=== PATIENT | female | born 1960 | race Caucasian/White ===

== ENCOUNTER 2020-09-21 18:23 | Inpatient (IN) | payer MEDICARE, BC ==
[~2020-09-21] VITALS: Ht 154.9 cm; Wt 40.8 kg
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
[2020-09-21] MEDS ORDERED: CYCL5TAB PO (18:49)
[2020-09-21] MEDS ORDERED: METH10TA2 PO (18:49)
[2020-09-21] MEDS ORDERED: CLON1TAB12 PO (18:49)
[2020-09-21] MEDS ORDERED: POLY15DR40 EACHEYE (18:49)
[2020-09-21] MEDS ORDERED: ALPR-324 PO (18:49)
[2020-09-21] MEDS ORDERED: OXYC30TA2 PO (18:49)
[2020-09-21] MEDS ORDERED: D-AM10TA2 PO (18:58)
[2020-09-21] MEDS ORDERED: MAG HYDROX/AL HYDROX/SIMETH 30 ML UDC PO PRN (19:00)
[2020-09-21] MEDS ORDERED: MAGNESIUM HYDROXIDE 30 ML UDC PO PRN (19:00)
[2020-09-21] MEDS ORDERED: BLOOD SUGAR DIAGNOSTIC 1 EACH STRIP IN ONE (19:00)
[2020-09-21] MEDS ORDERED: ACETAMINOPHEN 325 MG TABLET PO PRN (19:00)
[2020-09-21 19:49] VITALS: BP 125/83
[2020-09-21 20:20] VITALS: BP 117/73
[2020-09-21] MEDS ORDERED: HYDR200T81 PO (20:33)
[2020-09-21] MEDS ORDERED: FLUV50TA10 PO (20:35)
[2020-09-21] MEDS ORDERED: HYDR-500 PO (20:37)
[2020-09-21] MEDS ORDERED: QUET25TA PO (20:39)
[2020-09-21] MEDS: METHADONE HCL 10 MG TABLET PO SCH (21:04)
[2020-09-22] MEDS: LORAZEPAM 0.5 MG TABLET PO PRN ×3 (03:39→23:19)
--- NOTE | 2020-09-22 03:41 | NUR ---
GPS RN NOTE, PATIENT HAS A COMPLAINT OF FEELING ANXIOUS AND IS REQUESTING ATIVAN AT THIS TIME. PATIENT VITAL SIGNS ARE STABLE. GAVE ATIVAN 0.5MG PO Q6HR PRN ORDERED. WILL REASSESS FOR ANXIETY AND I WILL CONTINUE TO MONITOR THIS PATIENT.
[2020-09-22 07:21] LABS: ALBUMIN 3.6 g/dL (3.4-5.0); BILIRUBIN,TOTAL 0.3 mg/dL (0.2-1.0); CALCIUM, SERUM 8.6 mg/dL (8.5-10.1); CREATININE 0.8 mg/dL (0.6-1.3); TOTAL PROTEIN, SERUM 6.7 g/dL (6.4-8.2)
[2020-09-22 07:23] LABS: CHOLESTEROL 180 mg/dL (<200); HDL CHOLESTEROL 99 mg/dL (40-60); LDL 67 mg/dL (0-99); TRIGLYCERIDES 55 mg/dL (30-150)
[2020-09-22 08:00] VITALS: BP 131/81
[2020-09-22] MEDS ORDERED: ENSURE ENLIVE CHOC 237 ML CAN PO SCH (08:00)
[2020-09-22] MEDS ORDERED: KEY,NONCONTROL,TO KEEP IN PYXI 1 EA MC ONE (08:36)
[2020-09-22] MEDS: METHADONE HCL 10 MG TABLET PO SCH ×2 (09:14→21:28)
[2020-09-22] MEDS: HYDROXYCHLOROQUINE 200 MG TABLET PO SCH (09:15)
[2020-09-22] MEDS: DEXTROAMPHETAMINE 10 MG PO SCH ×3 (09:15→17:09)
[2020-09-22] MEDS: POLYVINYL ALCOHOL 15 ML BOTTLE OP PRN ×2 (09:16→22:36)
[2020-09-22] MEDS: ARIPIPRAZOLE 5 MG TABLET PO SCH ×2 (12:24→20:46)
[2020-09-22] MEDS: ENSURE ENLIVE CHOC 237 ML CAN PO SCH ×2 (12:41→17:14)
--- NOTE | 2020-09-22 12:49 | NUR ---
RN-NOTES PATIENT REQUESTING ATIVAN, STATED" I NEED IT FOR MY ANXIETY". ATIVAN 0.5MG P.O GIVEN PRN ORDER. WILL CONT. MONITORING FOR SAFETY AND BEHAVIOR.
--- NOTE | 2020-09-22 13:13 | NUR ---
Family Contact: SW contacted the pts father, Dr. Juan Antonio Hoffmann ([phone]), and went over the pts hold and the pts initial treatment plan. SW stated that she will keep him updated on the pts discharge.
--- NOTE | 2020-09-22 13:45 | NUR ---
RN-NOTES PATIENT SITTING IN HER BED INTERACTING WITH THE ROOM MATE,CALM,NO ACUTE DISTRESS NOTED.
--- NOTE | 2020-09-22 14:57 | NUR ---
Family Contact: Pts brother, Leroy ([phone]), called the SW and stated that the pt wants to be transferred and he contacted [facility] in [place] who stated that they have a bed. Pts brother asked the SW to coordinate the transfer.
--- NOTE | 2020-09-22 14:58 | NUR ---
[facility] Contact: NALINI called [facility] ([phone]) and spoke with Trace who stated that they cannot accept patients on a hold until the hold is up.
--- NOTE | 2020-09-22 15:20 | NUR ---
Family Contact: SW called the pts brother, Leroy ([phone]), and informed him that the pt can only be transferred there voluntarily and the pts brother stated that he wants to confirm that with the facility.
--- NOTE | 2020-09-22 15:21 | NUR ---
Family Contact: Pts brother, Leroy ([phone]), called the SW back and stated that he received the same information and that he wants the SW to speak to the MD the next day and advocate for the pt to be a voluntary pt.
[2020-09-22 16:00] VITALS: BP 126/73
[2020-09-22] MEDS: ALPRAZOLAM 0.25 MG TABLET PO SCH (17:09)
[2020-09-22] MEDS: oxyCODONE IR immediate release 5 MG PO PRN (17:34)
[2020-09-22 20:00] VITALS: BP 143/73
[2020-09-22] MEDS: MIRTAZAPINE 15 MG TABLET PO SCH (20:46)
--- NOTE | 2020-09-22 23:20 | NUR ---
RN NOTES: ANXIETY PT C/O FEELING ANXIOUS. REQUESTING ATIVAN. ATIVAN 0.5 MG PO PRN ADMINISTERED,WILL CONTINUE TO MONITOR.
[2020-09-23] MEDS ORDERED: KEY,NONCONTROL,TO KEEP IN PYXI 1 EA MC ONE (07:50)
[2020-09-23 08:00] VITALS: BP 128/75
[2020-09-23] MEDS: ARIPIPRAZOLE 5 MG TABLET PO SCH ×2 (08:00→20:31)
[2020-09-23] MEDS: HYDROXYCHLOROQUINE 200 MG TABLET PO SCH (08:00)
[2020-09-23] MEDS: ENSURE ENLIVE CHOC 237 ML CAN PO SCH ×3 (08:03→18:27)
[2020-09-23] MEDS: DEXTROAMPHETAMINE 10 MG PO SCH (08:31)
[2020-09-23] MEDS: ALPRAZOLAM 0.25 MG TABLET PO SCH ×2 (09:01→16:15)
[2020-09-23] MEDS: METHADONE HCL 10 MG TABLET PO SCH ×2 (09:01→20:31)
--- NOTE | 2020-09-23 09:52 | NUR ---
Family Contact with MD: and NALINI contacted the pts father, Dr. Juan Antonio Hoffmann ([phone]), to discuss that the pts hold is not going to be broken at this time as she is not stable for discharge. informed him that once the pt has improved she will be discharged and can be admitted to the alternate hospital for further treatment.
--- NOTE | 2020-09-23 10:24 | NUR ---
Dr. Woodward in the unit ordered to D/C Dextroamphetamine tab.
--- NOTE | 2020-09-23 11:28 | NUR ---
Initial Discharge Plan: Pt currently resides at home with her father, Dr Hoffmann ([phone]), located at [address] [place], [place] [id number]. Per pt, she would like to return home or leave this facility and be admitted to a different psychiatric facility. SW will work with the pt and the MD regarding appropriate discharge planning. SW will form a safe and proper discharge.
[2020-09-23] MEDS: oxyCODONE IR immediate release 5 MG PO PRN ×2 (15:09→19:28)
[2020-09-23 16:00] VITALS: BP 142/83
[2020-09-23] MEDS: LORAZEPAM 0.5 MG TABLET PO PRN (19:27)
[2020-09-23 20:28] VITALS: BP 127/73
[2020-09-23] MEDS: MIRTAZAPINE 15 MG TABLET PO SCH (20:31)
[2020-09-23] MEDS: CYCLOBENZAPRINE 10 MG TABLET PO PRN (22:07)
[2020-09-24] MEDS: LORAZEPAM 0.5 MG TABLET PO PRN ×2 (01:33→12:55)
[2020-09-24 08:00] VITALS: BP 116/74
--- NOTE | 2020-09-24 08:10 | NUR ---
RN note: Pt received alert awake oriented X 3. No breathing distress noted. Denies SI/HI. Safety measures observed. Encourage pt to call for assistance. Continue with plan of care. Continue to monitor.
[2020-09-24] MEDS: HYDROXYCHLOROQUINE 200 MG TABLET PO SCH (08:28)
[2020-09-24] MEDS: ALPRAZOLAM 0.25 MG TABLET PO SCH ×2 (08:29→16:57)
[2020-09-24] MEDS: METHADONE HCL 10 MG TABLET PO SCH ×2 (08:29→21:01)
[2020-09-24] MEDS: ENSURE ENLIVE CHOC 237 ML CAN PO SCH ×3 (08:30→17:04)
[2020-09-24] MEDS: ARIPIPRAZOLE 5 MG TABLET PO SCH ×2 (08:30→21:01)
[2020-09-24] MEDS: oxyCODONE IR immediate release 5 MG PO PRN ×2 (15:14→22:14)
[2020-09-24 16:00] VITALS: BP 124/74
[2020-09-24 16:31] VITALS: BP 124/74
[2020-09-24] MEDS: CYCLOBENZAPRINE 10 MG TABLET PO PRN (17:34)
[2020-09-24 20:05] VITALS: BP 127/69
[2020-09-24] MEDS: MIRTAZAPINE 15 MG TABLET PO SCH (21:01)
--- NOTE | 2020-09-24 22:22 | NUR ---
GPS RN NOTES PATIENT C/O PAIN ON THE FOOT. ON ASSESSMENT PATIENT SAID HER NERVES ARE LIKE SHOOTING PAIN WHEN I TOUCHED IT AND PER PATIENT SHE NEEDS TO GO TO THE ER TO BE SEEN BY DOCTOR. MADE THE CHARGE NURSE KNOWN AND OKAYED TO GIVE OXY IR 30 MG. VS FOLLOWS: BP- 129/86, P-68.
[2020-09-25 00:08] VITALS: BP 127/69
[2020-09-25] MEDS: CYCLOBENZAPRINE 10 MG TABLET PO PRN ×2 (04:35→13:05)
--- NOTE | 2020-09-25 06:45 | NUR ---
GPS RN CLOSING PATIENT IN BED SLEEPING, EASY TO AROUSE. NO S/S OF DISTRESS. PAIN MANAGED WITH PAIN MEDICATION. SAFETY KEPT IN PLACE THE WHOLE SHIFT: BED IN LOWEST, LOCKED POSITION. COOPERATIVE. NO SIGNIFICANT CHANGE SINCE LAST SHIFT.WILL ENDORSE CARE TO MORNING SHIFT NURSE.
[2020-09-25 08:00] VITALS: BP 129/78
[2020-09-25] MEDS: ARIPIPRAZOLE 5 MG TABLET PO SCH ×2 (08:27→20:32)
[2020-09-25] MEDS: METHADONE HCL 10 MG TABLET PO SCH ×2 (08:27→20:32)
[2020-09-25] MEDS: ENSURE ENLIVE CHOC 237 ML CAN PO SCH ×3 (08:27→18:06)
[2020-09-25] MEDS: HYDROXYCHLOROQUINE 200 MG TABLET PO SCH (08:29)
[2020-09-25] MEDS: ALPRAZOLAM 0.25 MG TABLET PO SCH ×2 (08:31→17:00)
[2020-09-25] MEDS: LORAZEPAM 0.5 MG TABLET PO PRN (13:05)
--- NOTE | 2020-09-25 13:05 | NUR ---
patient c/o anxiety medicated with Ativan 0.5mg po x1 will continue to monitor .
[2020-09-25 16:15] VITALS: BP 120/75
[2020-09-25] MEDS: POLYVINYL ALCOHOL 15 ML BOTTLE OP PRN (18:05)
[2020-09-25 20:10] VITALS: BP 117/78
[2020-09-25] MEDS: MIRTAZAPINE 15 MG TABLET PO SCH (20:32)
--- NOTE | 2020-09-25 20:32 | NUR ---
RN NOTE PATIENT REQUESTED TO TAKE ALL HER SCHEDULED MEDICINE RIGHT NOW. ALL 2100 SCHEDULED MEDICINES ADMINISTERED. WILL CONTINUE TO MONITOR.
[2020-09-25 20:40] VITALS: BP 117/78
[2020-09-25] MEDS: TEMAZEPAM 7.5 MG CAPSULE PO PRN (21:55)
--- NOTE | 2020-09-25 21:58 | NUR ---
RN NOTE: INSOMNIA PATIENT VERBALIZED THAT SHE IS UNABLE TO SLEEP & REQUESTED TO TAKE SLEEPING MEDICINE. PRN RESTORIL 7.5 MG PO ADMINISTERED. WILL CONTINUE TO MONITOR.
[2020-09-26] MEDS: oxyCODONE IR immediate release 5 MG PO PRN ×2 (06:31→10:36)
--- NOTE | 2020-09-26 06:32 | NUR ---
RN NOTE: PAIN PATIENT C/O GENERALIZED BODY PAIN /, GETTING IRRITATED & RESTLESS. PATIENT REQUESTED TO TAKE OXYCODONE. PRN OXYCODONE IR 30 MG PO ADMINISTERED. WILL ENDORSE TO AM RN TO CONTINUE MONITORING.
[2020-09-26 08:00] VITALS: BP 118/82
[2020-09-26] MEDS: ENSURE ENLIVE CHOC 237 ML CAN PO SCH ×3 (08:00→17:00)
[2020-09-26] MEDS: ALPRAZOLAM 0.25 MG TABLET PO SCH ×2 (08:52→16:25)
[2020-09-26] MEDS: ARIPIPRAZOLE 5 MG TABLET PO SCH ×2 (08:52→20:25)
[2020-09-26] MEDS: METHADONE HCL 10 MG TABLET PO SCH ×2 (08:52→21:30)
[2020-09-26] MEDS: HYDROXYCHLOROQUINE 200 MG TABLET PO SCH (08:52)
--- NOTE | 2020-09-26 08:54 | NUR ---
GPS RN NOTE PATIENT REFUSED ALL MORNING MEDS. EXPLAINED ALL RISKS AND BENEFITS BUT PT STATED THAT SHE WANTS TO PAUSE WITH EVERYTHING.
[2020-09-26] MEDS: LORAZEPAM 0.5 MG TABLET PO PRN ×2 (09:19→17:46)
--- NOTE | 2020-09-26 09:25 | NUR ---
GPS RN NOTE PT IS ANXIOUS AND AGITATED. SHE WANTS THE ROOM CLOSED BECAUSE SHE SAID THE NOISE IS HORRIBLE. ATIVAN 0.5 MG PO GIVEN. WILL CONTINUE TO MONITOR THROUGHOUT THE SHIFT.
[2020-09-26] MEDS: CYCLOBENZAPRINE 10 MG TABLET PO PRN (13:21)
[2020-09-26 16:00] VITALS: BP 118/92
[2020-09-26 20:20] VITALS: BP 153/90
[2020-09-26] MEDS: MIRTAZAPINE 15 MG TABLET PO SCH (20:26)
[2020-09-26 22:00] VITALS: BP 135/76
[2020-09-26] MEDS: TEMAZEPAM 7.5 MG CAPSULE PO PRN (22:22)
--- NOTE | 2020-09-26 22:23 | NUR ---
RN NOTES: INSOMNIA PT.UNABLE TO SLEEP, EASILY AGITATED PRN RESTORIL 7.5 MG PO ADMINISTERED. WILL CONTINUE TO MONITOR.
[2020-09-27 08:00] VITALS: BP_SYST 125; BP_SYST 126; BP_DIAS 77; BP_DIAS 80
[2020-09-27] MEDS: ENSURE ENLIVE CHOC 237 ML CAN PO SCH ×3 (08:13→17:09)
[2020-09-27] MEDS: ARIPIPRAZOLE 5 MG TABLET PO SCH ×2 (08:28→20:46)
[2020-09-27] MEDS: ALPRAZOLAM 0.25 MG TABLET PO SCH ×2 (08:28→17:08)
[2020-09-27] MEDS: CYCLOBENZAPRINE 10 MG TABLET PO PRN ×2 (08:29→17:08)
[2020-09-27] MEDS: HYDROXYCHLOROQUINE 200 MG TABLET PO SCH (08:29)
[2020-09-27] MEDS: METHADONE HCL 10 MG TABLET PO SCH ×2 (08:30→20:46)
--- NOTE | 2020-09-27 12:24 | NUR ---
[facility] Contact: NALINI called [facility] ([phone]) and spoke to Intake regarding a hospital to hospital transfer. NALINI faxed a referral packet to [phone].
[2020-09-27] MEDS: LORAZEPAM 0.5 MG TABLET PO PRN ×2 (13:34→20:46)
--- NOTE | 2020-09-27 13:43 | NUR ---
[facility] Contact: Ramon from [facility] ([phone]) called the and stated that the pt is too medically acute for their facility and denied the pt.
--- NOTE | 2020-09-27 14:07 | NUR ---
Family Contact: SW called the pts brother, Leroy ([phone]), and informed him that the pt was not accepted to [facility]. Pts brother stated that he wanted the SW to try [facility].
--- NOTE | 2020-09-27 14:08 | NUR ---
[facility] Referral: NALINI faxed a referral to [facility] with attn to Chloe to the fax number: [phone].
[2020-09-27 16:00] VITALS: BP 118/74
--- NOTE | 2020-09-27 16:10 | NUR ---
[facility] Contact: Chloe ([phone]) called the SW and stated that she wanted to see if the hold was broken. SW stated that it will get done tomorrow and that the pt will be discharged tomorrow.
--- NOTE | 2020-09-27 16:11 | NUR ---
Family Contact: NALINI called the pts brother, Leroy ([phone]), and informed him that she spoke to [facility] and the pt will be discharged there tomorrow.
[2020-09-27] MEDS: MIRTAZAPINE 15 MG TABLET PO SCH (20:46)
[2020-09-27] MEDS: TEMAZEPAM 7.5 MG CAPSULE PO PRN (21:32)
[2020-09-28] MEDS: CYCLOBENZAPRINE 10 MG TABLET PO PRN ×3 (05:14→21:01)
[2020-09-28] MEDS: LORAZEPAM 0.5 MG TABLET PO PRN ×3 (05:14→19:37)
[2020-09-28 08:00] VITALS: BP 122/73
--- NOTE | 2020-09-28 08:00 | NUR ---
RN NOTES PT REFUSES TO WEAR HER ID WRISTBAND, PLACED IT AT HER BEDSIDE, STATED THAT IT IRRITATES HER SKIN, PT ABLE TO SAY HER FULL NAME AND DATE OF .
[2020-09-28] MEDS: ENSURE ENLIVE CHOC 237 ML CAN PO SCH ×3 (08:13→17:37)
[2020-09-28] MEDS: METHADONE HCL 10 MG TABLET PO SCH ×2 (08:47→21:01)
[2020-09-28] MEDS: ARIPIPRAZOLE 5 MG TABLET PO SCH ×2 (08:47→21:01)
[2020-09-28] MEDS: ALPRAZOLAM 0.25 MG TABLET PO SCH ×2 (08:48→16:35)
[2020-09-28] MEDS: HYDROXYCHLOROQUINE 200 MG TABLET PO SCH (09:07)
--- NOTE | 2020-09-28 12:23 | NUR ---
[facility] Referral: NALINI faxed a Voluntary form to [facility] with attn to Chloe to the fax number: [phone].
[2020-09-28] MEDS: POLYVINYL ALCOHOL 15 ML BOTTLE OP PRN (14:15)
[2020-09-28 16:00] VITALS: BP 92/63
--- NOTE | 2020-09-28 17:46 | NUR ---
[facility] Contact: Chloe ([phone]) called the and stated that the hospital will not do a lateral transfer as the pt is already on a psychiatric unit. She transferred the phone call to Yohannes ([phone]) at intake who stated the same information and stated that the pt can be discharged and brought to their hospital directly.
--- NOTE | 2020-09-28 17:47 | NUR ---
Family Contact: NALINI called the pts brother, Leroy ([phone]), and informed him that the transfer is not being approved and he stated that he wants the MD to discharge the pt then. NALINI stated that she will speak to the MD and if the MD believes that the pt is ready to be discharged then the pt can leave.
[2020-09-28 20:00] VITALS: BP 109/73
[2020-09-28] MEDS: TEMAZEPAM 7.5 MG CAPSULE PO PRN (21:00)
[2020-09-28] MEDS: MIRTAZAPINE 15 MG TABLET PO SCH (21:01)
[2020-09-29] MEDS: LORAZEPAM 0.5 MG TABLET PO PRN ×2 (04:15→14:17)
[2020-09-29 07:01] LABS: THYROID STIMULATING HORMONE 0.916 uIU/mL (0.358-3.74)
[2020-09-29 08:00] VITALS: BP 94/61
[2020-09-29] MEDS: ENSURE ENLIVE CHOC 237 ML CAN PO SCH ×3 (08:26→17:37)
[2020-09-29] MEDS: ARIPIPRAZOLE 5 MG TABLET PO SCH (09:50)
[2020-09-29] MEDS: ALPRAZOLAM 0.25 MG TABLET PO SCH ×2 (09:51→16:50)
[2020-09-29] MEDS: METHADONE HCL 10 MG TABLET PO SCH (09:51)
[2020-09-29] MEDS: HYDROXYCHLOROQUINE 200 MG TABLET PO SCH (09:51)
--- NOTE | 2020-09-29 10:49 | NUR ---
SNF Referral: NALINI faxed a referral to [facility] with attn to Dane to the fax number: [phone].
--- NOTE | 2020-09-29 13:35 | NUR ---
Family Contact: SW contacted the pts father, Dr. Juan Antonio Hoffmann ([phone]), and informed him of the pts acceptance to [facility].
--- NOTE | 2020-09-29 13:39 | NUR ---
SNF Referral: NALINI faxed a referral to [facility] with attn to Aditi to the fax number: [phone].
--- NOTE | 2020-09-29 13:45 | NUR ---
Discharge Note: Pt will be discharged to [facility] Address: [address], [place] [address] . Pt will be transported via [facility] at 4PM. Pts father, Juan Antonio Hoffmann ([phone]), was informed and made aware of this discharge. Upon discharge, the pt appeared to be in a euthymic mood and presented with a calm affect. The pt denied both suicidal and homicidal ideation as well as auditory and visual hallucinations. Pt will continue to be under the care of her psychiatrist, Dr. Altagracia Woodward, located at [address] [facility] [place] [address], [place] [address]; and his enrollment coordinator, Dr. Mcbride, located at [address] [address] [address]; . The choice of vendor form and multidisciplinary exit care form were done, printed, signed, and given to the patient.
--- NOTE | 2020-09-29 13:50 | NUR ---
Family Contact: SW contacted the pts father, Dr. Juan Antonio Hoffmann ([phone]), and informed him of the pts acceptance to [facility].
--- NOTE | 2020-09-29 13:54 | NUR ---
Discharge Note: Pt will be discharged to [facility] (SNF) located at [address], [place] [address]; ([phone]). Pt will be transported via [facility] at 5PM. Pts father, Juan Antonio Hoffmann ([phone]), was informed and made aware of this discharge. Upon discharge, the pt appeared to be in a euthymic mood and presented with a calm affect. The pt denied both suicidal and homicidal ideation as well as auditory and visual hallucinations. Pt will continue to be under the care of her psychiatrist, Dr. Altagracia Woodward, located at [address] [place] [address], [place] [address]; and pewter caster, Dr. Lucas, located at [address], [place] [address], . Pt signed the Choice of Vendor form and the multidisciplinary exit care form was done, printed, signed, and given to the patient.
[2020-09-29] MEDS: CYCLOBENZAPRINE 10 MG TABLET PO PRN (14:18)
[2020-09-29 16:00] VITALS: BP 109/63
--- NOTE | 2020-09-29 19:00 | NUR ---
TIME CLERK NOTES DR. CARRASCO GAVE DISCHARGE ORDER. PATIENT WAS DISCHARGE TO [facility] REPORT GIVEN TO GOLDEN ABARCA. PATIENT LEFT THE UNIT IN STABLE CONDITION A/O X 3. AMBULATORY WITH STEADY GAIT. DISCHARGE MEDICATIONS WAS REVIEWED WITH THE PATIENT WITH UNDERSTANDING. PATIENT DID NOT VERBALIZE SI/HI,DENIES VISUAL/AUDITORY HALLUCINATIONS AT THE TIME OF DISCHARGE. PATIENT INSTRUCTED TO CALL 911 OR GO TO THE NEAREST EMERGENCY FACILITY IN CASE OF EMERGENCY. PATIENT PICKED UP VIA AMBULANCE IN A GURNEY ACCOMPANIED BY 2 EMT PERSONNEL IN STABLE CONDITION. SKIN IS INTACT. ALL BELONGINGS WAS GIVEN BACK TO THE PATIENT INCLUDING HOME MEDICATIONS TAKEN FROM THE PHARMACY AND MEDICATION RECONCILIATION TO BE GIVEN TO SNF RN. MASK WAS PROVIDED.
== END 2020-09-29 19:07 | DRG 885 ==
LOC: GPS 18:23
PROVIDERS: ADMIT Psychiatry & Neurology Psychosomatic Medicine; ATTEND Nurse Practitioner Family
DX: F33.3 Major depressive disorder, recurrent, severe with psychotic symptoms (principal); M32.9 Systemic lupus erythematosus, unspecified; K51.90 Ulcerative colitis, unspecified, without complications; F29 Unspecified psychosis not due to a substance or known physiological condition; G47.00 Insomnia, unspecified; G89.4 Chronic pain syndrome; F41.9 Anxiety disorder, unspecified; Z73.6 Limitation of activities due to disability; M19.019 Primary osteoarthritis, unspecified shoulder; M81.0 Age-related osteoporosis without current pathological fracture; Z85.3 Personal history of malignant neoplasm of breast; F41.0 Panic disorder [episodic paroxysmal anxiety]
CPT/HCPCS: 36415; 80053-TC; 80061-TC; 82962-TC; 84439-TC; 84443-TC; 87081-TC